=== PATIENT | female | born 1980 | race Hispanic/Latino ===

== ENCOUNTER 2017-10-13 18:05 | Emergency (ER) | payer OTHER ==
--- NOTE | 2017-10-13 19:09 | CT ---
NONCONTRAST CT HEAD 10/13/17 HISTORY: Patient hit head on desk on 10/05/17 but is still complaining of nausea and headaches and dizziness. COMPARISON: None available. FINDINGS: There is no evidence of hemorrhage, acute infarction, mass effect, or midline shift. Ventricular syst em is normal in size, shape and position. NO calvarial fracture is seen. The visualized paranasal sin uses and mastoid air cells are clear. IMPRESSION: No acute intracranial abnormalities demonstrated. POS: [facility]
[2017-10-13 19:10] LABS: #Basophils 0.1 thou/uL (0.0-0.2); #Eosinphils 0.1 thou/uL (0.0-0.7); #Lymphocytes 3.7 thou/uL (1.20-3.40); #Monocytes 0.6 thou/uL (0.11-0.59); #Neutrophils 5.3 thou/uL (1.40-6.50); %Basophils 0.9 % (0.0-1.0); %Lymphocytes 37.6 % (21.0-51.0); %Monocytes 6.5 % (0.0-10.0); %Neutrophils 54.1 % (42.0-75.0); Hemoglobin 14.3 g/dL (12.0-16.0); Mean Corpuscular HGB CONC 34.9 g/dL (32.0-36.0); Mean Corpuscular Hemoglobin 30.2 pg (27.0-31.0); Mean Corpuscular Volume 86.6 fl (81.0-99.0); Mean Platelet Volume 9.5 fL (7.4-10.4); Platelet Count 236 thou/uL (130-400); Red Blood Cell (RBC) Count 4.74 mill/uL (4.20-5.40); White Blood Cell (WBC) Count 9.8 thou/uL (4.8-10.8)
[2017-10-13 19:19] LABS: BHCG - Serum Negative (NEGATIVE); Pregs Control Background? CLEAR/WHITE (CLR/WHITE); Pregs Control Bar Appear? YES (CONTROL BAR)
[2017-10-13 19:24] LABS: ALT (SGPT) 39 U/L (8-55); AST (SGOT) 19 U/L (5-34); Alkaline Phosphatase 96 U/L (40-150); Anion Gap 14 mmol/L (10-20); BUN (Urea Nitrogen) 10 mg/dL (7.0-18.7); Bilirubin, Total 0.3 mg/dL (0.2-1.2); Calc. Creatinine Clearance 0 mL/min (70-130); Calcium 9.6 mg/dL (7.8-10.44); Carbon Dioxide 21 mmol/L (22-29); Chloride 104 mmol/L (98-107); Estimated GFR-MDRD Greater than 90; Glucose 253 mg/dL (70-105); Potassium 3.5 mmol/L (3.5-5.1); Sodium 135 mmol/L (136-145)
== END 2017-10-13 19:55 | disposition home or self-care (01) ==
LOC: SCSER 18:05
DX: F07.81 Postconcussional syndrome (principal); E03.9 Hypothyroidism, unspecified; J45.909 Unspecified asthma, uncomplicated; Z79.899 Other long term (current) drug therapy; W19.XXXA Unspecified fall, initial encounter
CPT/HCPCS: 70450; 80053; 84703; 85025; 93005

== ENCOUNTER → 2017-11-09 | Day surgery (SDC) | payer OTHER ==
--- NOTE | 2017-11-09 13:38 | MRI ---
MRI BRAIN WITHOUT CONTRAST: Date: 11/09/17 HISTORY: Headache, syncope, passed out, brief loss of consciousness, head injury, frequent headaches, balance problems. FINDINGS: No restricted diffusion is seen. No evidence of infarct, hemorrhage, midline shift, or abnormal extra -axial fluid collections are noted. The ventricular size is normal and the basilar cisterns are paten t. No blood products are noted on the gradient echo sequences. No signal abnormalities are seen on th e highly sensitive FLAIR images. There is mucosal disease in the paranasal sinuses. IMPRESSION: No evidence of acute intracranial process. POS: [facility]
--- NOTE | 2017-12-15 14:07 | EEG ---
Referring Physician: DR. LUIS CHAVIS EEG # [id number] PROCEDURE: Outpatient prolonged 1-hour EEG. PATIENT NAME: Tsering Raygoza : 1980 DATE EEG DONE: 11/09/2017 INDICATION: Syncope, collapse, loss of consciousness, jerking EEG CLASSIFICATION: Normal awake and asleep, abundant beta activity. REPORT: This is a 22-channel digital EEG recording utilizing 10-20 international electrode placement system on a patient with syncope, collapse, jerking, loss of consciousness. During wakefulness, the background activity consists of very low amplitude alpha rhythm of 10-11 Hz mixed with abundant low amplitude beta activity. The background activity is symmetric and reactive in nature. It is mixed with myogenic activity representing frontalis and temporalis muscles bilaterally. There is no asymmetry noted between the two hemispheres. DROWSINESS AND SLEEP: Subject is able to attain periods of drowsiness with diffuse theta activity. Subject is able to attain non-REM sleep with normal sleep potentials. There is no asymmetry or paroxysmal activity noted. INDUCTION: HYPERVENTILATION: Could not be performed because of the patient's history of asthma and complaints of shortness of breath. PHOTIC STIMULATION: No photic drive seen. EK per minute. IMPRESSION: This is a prolonged EEG recording for 1 hour. This EEG is considered normal awake and asleep EEG. There is abundant low amplitude beta activity noted which could be medication effect or could be related to anxiety. However, there is no clear epileptiform activity or focal abnormality noted. Clinical correlation recommended. 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
== END ==
LOC: MRI 12:49 → RAD 12:50
PROVIDERS: ATTEND Student in an Organized Health Care Education/Training Program
DX: R51 Headache (principal); R55 Syncope and collapse; R26.89 Other abnormalities of gait and mobility; S09.90XA Unspecified injury of head, initial encounter
CPT/HCPCS: 70551; 95816

== ENCOUNTER 2017-12-29 14:28 | Emergency (ER) | payer OTHER ==
[2017-12-29 15:29] LABS: #Basophils 0.1 thou/uL (0.0-0.2); #Eosinphils 0.1 thou/uL (0.0-0.7); #Lymphocytes 3.9 thou/uL (1.20-3.40); #Monocytes 0.8 thou/uL (0.11-0.59); #Neutrophils 7.3 thou/uL (1.40-6.50); %Basophils 0.8 % (0.0-1.0); %Eosinophils 0.8 % (0.0-10.0); %Lymphocytes 32.3 % (21.0-51.0); %Monocytes 6.2 % (0.0-10.0); %Neutrophils 59.8 % (42.0-75.0); Mean Corpuscular HGB CONC 36.1 g/dL (32.0-36.0); Mean Corpuscular Hemoglobin 31.7 pg (27.0-31.0); Mean Corpuscular Volume 87.9 fl (81.0-99.0); Mean Platelet Volume 8.5 fL (7.4-10.4); Platelet Count 270 thou/uL (130-400); RBC Distribution Width 11.3 % (11.5-14.5); Red Blood Cell (RBC) Count 4.73 mill/uL (4.20-5.40); White Blood Cell (WBC) Count 12.1 thou/uL (4.8-10.8)
[2017-12-29 15:30] LABS: Anion Gap 12 mmol/L (10-20); BUN (Urea Nitrogen) 13 mg/dL (7.0-18.7); Calc. Creatinine Clearance 0 mL/min (70-130); Calcium 8.9 mg/dL (7.8-10.44); Carbon Dioxide 20 mmol/L (22-29); Chloride 107 mmol/L (98-107); Estimated GFR-MDRD Greater than 90; Glucose 358 mg/dL (70-105); Potassium 3.3 mmol/L (3.5-5.1); Sodium 136 mmol/L (136-145)
--- NOTE | 2017-12-29 15:31 | CT ---
CT OF HEAD NONCONTRAST: Comparison: 10-13-17 Indication: Headache. Numbness left upper and lower extremities. FINDINGS: No ventriculomegaly, mass effect, midline shift, or acute intracranial hemorrhage. Joavn cisterna magn a is again seen. Paranasal sinuses are clear, where visualized. IMPRESSION: No acute intracranial abnormalities. POS: [facility]
[2017-12-29 16:14] LABS: Bilirubin Negative (Negative); Blood, Urine Trace (Negative); Clarity Clear (Clear); Glucose, Urine (Dipstick) >=1000 mg/dL (Negative); Leukocyte Negative (Negative); Nitrite Negative (Negative); Protein, Urine (Dipstick) Negative (Neg-Trace); Specific Gravity, Urine 1.015 (1.005-1.030); Urobilinogen 0.2 mg/dL (0.2-1.0); pH, Urine 5.5 (5.0-9.0)
[2017-12-29 16:15] LABS: Pregnancy Test - Urine (BHCG) Negative (Negative); Pregu Control Background? CLEAR/WHITE (CLR/WHITE); Pregu Control Bar Appear? YES (CONTROL BAR); Specific Gravity 1.015 (1.002-1.036)
--- NOTE | 2017-12-29 16:16 | ULT ---
VENOUS DOPPLER ULTRASOUND OF THE LEFT LOWER EXTREMITY: Date: 12/29/17 HISTORY: Pain in the left lower extremity. TECHNIQUE: Macias scale ultrasound with color flow and spectral Doppler imaging of the deep venous systems of the left lower extremity is performed. FINDINGS: There is good flow, compression, and augmentation noted in the left common femoral, femoral, deep fem oral, popliteal, posterior tibial, and greater saphenous veins. IMPRESSION: No evidence of deep venous thrombosis in the left lower extremity. POS: [facility]
[2017-12-29 16:19] LABS: Bacteria/HPF 1+ HPF (None Seen); Squamous Epithelial 0-3 HPF (0-3)
[2017-12-29 16:22] LABS: Amphetamine Not Detected (NotDetected); Barbiturates Screen Not Detected (NotDetected); Benzodiazepine Screen Detected (NotDetected); Cocaine Metabolite Screen Not Detected (NotDetected); Medtox Control Line Valid? VALID (VALID); Methadone Not Detected (NotDetected); Methamphetamine Not Detected (NotDetected); Opiate Screen Not Detected (NotDetected); Oxycodone Screen Not Detected (NotDetected); Phencyclidine (PCP) Not Detected (NotDetected); THC/Cannabinoid Screen Not Detected (NotDetected); Tricyclic Screen Not Detected (NotDetected)
== END 2017-12-29 16:27 | disposition home or self-care (01) ==
LOC: SCSER 14:28
DX: R20.2 Paresthesia of skin (principal); E11.9 Type 2 diabetes mellitus without complications; E03.9 Hypothyroidism, unspecified; J45.909 Unspecified asthma, uncomplicated; Z79.4 Long term (current) use of insulin; Z79.899 Other long term (current) drug therapy
CPT/HCPCS: 70450; 80048; 80306; 81003; 81015; 81025; 85025; 93005

== ENCOUNTER 2018-11-18 09:26 | Emergency (ER) | payer OTHER ==
[2018-11-18] MEDS ORDERED: Ondansetron PF 4 MG/2 ML Vial ONE (10:04)
[2018-11-18] MEDS ORDERED: Pantoprazole 40 MG VIAL ONE (10:04)
[2018-11-18 10:05] LABS: Pregnancy Test - Urine (BHCG) Negative (Negative); Pregu Control Background? CLEAR/WHITE (CLR/WHITE); Pregu Control Bar Appear? YES (CONTROL BAR); Specific Gravity 1.025 (1.002-1.036)
[2018-11-18 10:10] LABS: #Basophils 0.1 thou/uL (0.0-0.2); #Eosinphils 0.3 thou/uL (0.0-0.7); #Lymphocytes 3.4 thou/uL (1.20-3.40); #Monocytes 0.6 thou/uL (0.11-0.59); #Neutrophils 3.5 thou/uL (1.40-6.50); %Basophils 1.5 % (0.0-1.0); %Eosinophils 4.3 % (0.0-10.0); %Lymphocytes 42.4 % (21.0-51.0); %Monocytes 7.6 % (0.0-10.0); %Neutrophils 44.2 % (42.0-75.0); Hemoglobin 14.2 g/dL (12.0-16.0); Mean Corpuscular HGB CONC 33.1 g/dL (32.0-36.0); Mean Corpuscular Hemoglobin 29.4 pg (27.0-31.0); Mean Corpuscular Volume 88.8 fL (78.0-98.0); Mean Platelet Volume 8.2 fL (7.4-10.4); Platelet Count 270 thou/uL (130-400); RBC Distribution Width 11.7 % (11.5-14.5); Red Blood Cell (RBC) Count 4.83 mill/uL (4.20-5.40)
[2018-11-18 10:18] LABS: ALT (SGPT) 115 U/L (8-55); AST (SGOT) 94 U/L (5-34); Albumin 3.9 g/dL (3.5-5.0); Alkaline Phosphatase 107 U/L (40-150); Anion Gap 15 mmol/L (10-20); BUN (Urea Nitrogen) 6 mg/dL (7.0-18.7); Bilirubin, Total 0.4 mg/dL (0.2-1.2); Calc. Creatinine Clearance 0 mL/min (70-130); Calcium 9.6 mg/dL (7.8-10.44); Carbon Dioxide 22 mmol/L (22-29); Chloride 106 mmol/L (98-107); Estimated GFR-MDRD Greater than 90; Globulin 3.3 g/dL (2.4-3.5); Glucose 167 mg/dL (70-105); Lipase 11 U/L (8-78); Potassium 3.7 mmol/L (3.5-5.1); Protein, Total 7.2 g/dL (6.0-8.3); Sodium 139 mmol/L (136-145)
[2018-11-18] MEDS ORDERED: Mag-Al Plus 1200 MG/1200 MG/120 MG/30 ML UDCUP ONE (11:01)
[2018-11-18] MEDS ORDERED: Lidocaine Viscous Sol 2% 15 ml UD Cup ONE (11:01)
[2018-11-18 11:11] LABS: Bilirubin Negative (Negative); Blood, Urine Negative (Negative); Clarity Clear (Clear); Glucose, Urine (Dipstick) Negative (Negative); Leukocyte Negative (Negative); Nitrite Negative (Negative); Protein, Urine (Dipstick) Negative (Neg-Trace); Specific Gravity, Urine 1.015 (1.005-1.030); Urobilinogen 0.2 mg/dL (0.2-1.0)
== END 2018-11-18 11:40 | disposition home or self-care (01) ==
LOC: SCSER 09:26
DX: A09 Infectious gastroenteritis and colitis, unspecified (principal); E03.9 Hypothyroidism, unspecified; J45.909 Unspecified asthma, uncomplicated; Z79.4 Long term (current) use of insulin; Z79.899 Other long term (current) drug therapy
CPT/HCPCS: 80053; 81003; 81025; 83690; 85025; 93005; 96374; 96375; C9113; J2405

== ENCOUNTER 2018-11-23 08:43 | Emergency (ER) | payer OTHER ==
[2018-11-23] MEDS ORDERED: Metoclopramide HCl 10 MG/2 ML VIAL ONE (09:07)
[2018-11-23] MEDS ORDERED: Mag-Al Plus 1200 MG/1200 MG/120 MG/30 ML UDCUP ONE (09:07)
[2018-11-23] MEDS ORDERED: Lidocaine Viscous Sol 2% 15 ml UD Cup ONE (09:07)
[2018-11-23] MEDS ORDERED: diphenhydrAMINE 50 MG/ML VIAL ONE (09:07)
[2018-11-23] MEDS ORDERED: Pantoprazole 40 MG VIAL ONE (09:07)
[2018-11-23 09:13] LABS: #Basophils 0.1 thou/uL (0.0-0.2); #Eosinphils 0.3 thou/uL (0.0-0.7); #Lymphocytes 2.3 thou/uL (1.20-3.40); #Monocytes 0.8 thou/uL (0.11-0.59); #Neutrophils 10.9 thou/uL (1.40-6.50); %Basophils 0.5 % (0.0-1.0); %Eosinophils 1.8 % (0.0-10.0); %Monocytes 5.5 % (0.0-10.0); %Neutrophils 76.2 % (42.0-75.0); Hemoglobin 14.8 g/dL (12.0-16.0); Mean Corpuscular HGB CONC 33.7 g/dL (32.0-36.0); Mean Corpuscular Hemoglobin 29.8 pg (27.0-31.0); Mean Corpuscular Volume 88.3 fL (78.0-98.0); Mean Platelet Volume 8.3 fL (7.4-10.4); Platelet Count 247 thou/uL (130-400); RBC Distribution Width 11.6 % (11.5-14.5); Red Blood Cell (RBC) Count 4.96 mill/uL (4.20-5.40); White Blood Cell (WBC) Count 14.3 thou/uL (4.8-10.8)
[2018-11-23 09:27] LABS: BHCG - Serum Negative (NEGATIVE); Pregs Control Background? CLEAR/WHITE (CLR/WHITE); Pregs Control Bar Appear? YES (CONTROL BAR)
[2018-11-23 09:31] LABS: ALT (SGPT) 79 U/L (8-55); AST (SGOT) 54 U/L (5-34); Alkaline Phosphatase 97 U/L (40-150); Anion Gap 15 mmol/L (10-20); BUN (Urea Nitrogen) 7 mg/dL (7.0-18.7); Bilirubin, Total 0.5 mg/dL (0.2-1.2); Calc. Creatinine Clearance 0 mL/min (70-130); Calcium 9.2 mg/dL (7.8-10.44); Carbon Dioxide 19 mmol/L (22-29); Chloride 106 mmol/L (98-107); Estimated GFR-MDRD Greater than 90; Globulin 3.4 g/dL (2.4-3.5); Glucose 230 mg/dL (70-105); Lipase 18 U/L (8-78); Potassium 4.4 mmol/L (3.5-5.1); Protein, Total 7.4 g/dL (6.0-8.3); Sodium 136 mmol/L (136-145)
== END 2018-11-23 10:11 | disposition home or self-care (01) ==
LOC: SCSER 08:43
DX: R10.13 Epigastric pain (principal); E11.9 Type 2 diabetes mellitus without complications; E03.9 Hypothyroidism, unspecified; J45.909 Unspecified asthma, uncomplicated; Z79.4 Long term (current) use of insulin; Z79.899 Other long term (current) drug therapy
CPT/HCPCS: 80053; 83690; 84703; 85025; 96365; 96375; C9113; J1200; J2765

== ENCOUNTER 2019-08-05 17:06 | Outpatient (CLI) | payer OTHER ==
--- NOTE | 2019-08-05 17:44 | RAD ---
Cervical spine 5 views HISTORY: Neck pain. FINDINGS: Straightening of the normal lordotic curvature. Vertebral body heights are maintained. No a cute fracture or dislocation. Neural foramina remain free of significant osseous encroachment on the oblique views. Mild leftward convex curvature of the upper thoracic spine on the frontal view. IMPRESSION: No significant abnormalities are demonstrated.
== END 2019-08-05 17:07 | disposition home or self-care (01) ==
LOC: SCSRAD 17:06
PROVIDERS: ATTEND Physician Assistant
DX: M54.2 Cervicalgia (principal)
CPT/HCPCS: 72050

== ENCOUNTER 2019-11-02 12:42 | Outpatient (CLI) | payer OTHER ==
[2019-11-02] MEDS ORDERED: Magnevist 469MG/ML 20 ML VIAL ONE (13:44)
--- NOTE | 2019-11-02 15:05 | MRI ---
MRI BRAIN AND INTERNAL AUDITORY CANALS WITH AND WITHOUT CONTRAST: Date: 11/02/2019 HISTORY: 39-year-old female with: H 93.11, tinnitus, right ear H 81.01 Meniere's disease, right ear H 90.41 sensorineural hearing loss, unilateral, right ear, with unrestricted hearing on the contralat eral side. TECHNIQUE: Multiplanar, multisequence MRI, both whole brain images and thin slices through the IACs, pre and pos t IV injection of gadolinium-based contrast agent. FINDINGS: The ventricles are normal in size and configuration. There is no major intra-axial signal abnormality , restricted diffusion, abnormal intra-axial enhancement, mass, midline shift or any other mass effect, recent intra-axial hemorrhage, or extra-axial fluid collection. There is no abnormal enhancement, mass, or morphologic abnormality, involving the cerebellopontine an gles, 7th-8th nerve complexes, internal auditory canals, cochleae, vestibules, vestibular aqueducts, or semicircular canals. Sigmoid and transverse dural venous sinuses are patent. IMPRESSION: Normal.
== END 2019-11-02 12:43 | disposition home or self-care (01) ==
LOC: MRI 12:42
PROVIDERS: ATTEND Otolaryngology Plastic Surgery within the Head & Neck
DX: H93.11 Tinnitus, right ear (principal); H81.01 Meniere's disease, right ear; H90.41 Sensorineural hearing loss, unilateral, right ear, with unrestricted hearing on the contralateral side
CPT/HCPCS: 70553; A9579

== ENCOUNTER 2020-11-19 17:18 | Outpatient (CLI) | payer BC | END 2020-11-19 17:19 | disposition home or self-care (01) | LOC: SCSRAD 17:18 | PROVIDERS: ATTEND Family Medicine | DX: M25.562 Pain in left knee (principal); M54.2 Cervicalgia; M75.41 Impingement syndrome of right shoulder; M89.8X1 Other specified disorders of bone, shoulder; M41.9 Scoliosis, unspecified | CPT/HCPCS: 72040; 72072 ==

== ENCOUNTER 2021-04-24 18:06 | Outpatient (CLI) | payer BC | END 2021-04-24 18:07 | disposition home or self-care (01) | LOC: SCSRAD 18:06 | PROVIDERS: ATTEND Family Medicine | DX: S62.610D Displaced fracture of proximal phalanx of right index finger, subsequent encounter for fracture with routine healing (principal) ==

== ENCOUNTER 2022-03-10 13:23 | Outpatient (CLI) | payer BC | END 2022-03-10 13:24 | disposition home or self-care (01) | LOC: SCSRAD 13:23 | PROVIDERS: ATTEND Family Medicine | DX: M54.2 Cervicalgia (principal); M48.02 Spinal stenosis, cervical region | CPT/HCPCS: 72052 ==

== ENCOUNTER 2023-04-13 15:16 | Outpatient (CLI) | payer BC | END 2023-04-13 15:17 | disposition home or self-care (01) | LOC: SCSRAD 15:16 | PROVIDERS: ATTEND Nurse Practitioner Family | DX: M54.50 Low back pain, unspecified (principal); M54.6 Pain in thoracic spine | CPT/HCPCS: 72072; 72100 ==